=== PATIENT | female | born 1990 | race Caucasian/White ===

== ENCOUNTER → 2017-08-03 15:55 | Outpatient (CLI) | payer OTHER, SELFPAY | PROVIDERS: Family Provider Family Medicine; PCP Family Medicine; Visit Provider Obstetrics & Gynecology | DX: Z34.90 Encounter for supervision of normal pregnancy, unspecified, unspecified trimester (principal) | CPT/HCPCS: 86850; 86900 ==

== ENCOUNTER → 2017-11-10 19:00 | Outpatient (CLI) | payer OTHER, SELFPAY ==
[2017-11-10 21:55] LABS: Chlamydia Trachomatis by PCR Negative (Negative); Neisserai gonorrhoeae by PCR Negative (Negative); Probe Check PASS; Sample Adequacy Control PASS; Specimen Processing Control PASS
== END ==
PROVIDERS: Visit Provider Obstetrics & Gynecology
DX: Z34.01 Encounter for supervision of normal first pregnancy, first trimester (principal)
CPT/HCPCS: 87086; 87088; 87491; 87591

== ENCOUNTER → 2017-12-10 15:03 | Outpatient (CLI) | payer OTHER, SELFPAY ==
[2017-12-10 16:35] LABS: Absolute Lymphocyte Count 1.82 X10^3/ul (0.83-4.51); Absolute Neutrophil Count 9.6 X10^3/uL (2.0-7.7); Basophil# 0.03 X10^3/uL; Basophil% 0.2 % (0-1); Eosinophil# 0.28 X10^3/uL; Eosinophils% 2.2 % (0-5); Hematocrit 37.8 % (37-47); Hemoglobin 13.4 g/dl (12.0-15.0); Lymphocyte # 1.82 X10^3/ul (4.0); Lymphocyte % 14.3 % (19-41); Mean Corp Hgb Conc 35.4 g/gl (32-36); Mean Corpuscular Hgb 30.9 pg (27.0-32.0); Mean Corpuscular Volume 87.3 fL (81-99); Mean Platelet Vol. 9.8 fl (6.2-12.0); Monocyte# 0.95 X10^3/uL; Monocyte% 7.5 % (0-10); Neutrophil # 9.56 X10^3/uL (2.7-7.7); Neutrophil % 75.4 % (47-70); Platelet Count 292 K/mm3 (150-450); RBC Distribution Width SD 40.2 fl (35.1-43.9); Red Blood Count 4.33 M/mm3 (4.2-5.4); White Blood Count 12.7 K/mm3 (4.4-11.0)
[2017-12-10 16:57] LABS: POSITIVE COUNT NO; POSITIVE DIFFERENTIAL NO; POSITIVE MORPHOLOGY NO
[2017-12-11 02:34] LABS: Rapid Plasmin Reagin (RPR) NONREACTIVE (NONREACTIVE)
[2017-12-11 09:28] LABS: HIV - WCH Non-Reactive (Nonreactive); Rubella IgG 95.9 IU/mL
[2017-12-14 12:28] LABS: HEPATITIS B SURFACE AG Negative (Negative)
== END ==
PROVIDERS: PCP Family Medicine; Visit Provider Obstetrics & Gynecology
DX: Z34.01 Encounter for supervision of normal first pregnancy, first trimester (principal)
CPT/HCPCS: 85025; 86592; 86703; 86762; 86850; 86900; 87340

== ENCOUNTER → 2018-01-20 17:58 | Outpatient (CLI) | payer OTHER, SELFPAY ==
--- NOTE | 2018-01-20 17:58 | DT_ITS ---
This patient was seen during an EMR downtime January 18, 2018 - January 25, 2018. This patient may have a combination of paper and electronic documentation or all paper documentation. All documentation is viewable within the e-chart portion of [facility] for each patient visit.
--- NOTE | 2018-01-20 18:00 | US_ITS ---
STUDY: SECOND AND THIRD TRIMESTER OBSTETRICAL ULTRASOUND REASON FOR EXAM: Female, 27 years old. ANATOMY LMP: TECHNIQUE: Transabdominal PRIOR ULTRASOUND: None. FINDINGS: There is a single intrauterine fetus. The fetus is in a breech presentation. There is demonstrated cardiac activity with a heart rate of 142 bpm. There is a normal amniotic fluid volume. The largest amniotic fluid pocket measures 5.8 cm. The placenta is anterior in location and is not low lying. There are Grade 0 placental changes. The cervix measures 31 mm in length. The adnexal regions are not visualized. BIOMETRY: BPD: 41MM: 18 weeks, 4 days HC: 159MM: 18 weeks, 6 days AC: 137MM: 19 weeks, 1 days FL: 29MM: 19 weeks, 1 days CI: 74 FL/BPD: 71 FL/HC: FL/AC: 21 HC/AC: 1.16 age by current US: 19 weeks, 0 days. JON by current US: ..18. Estimated weight: 270 grams, +/- 39 grams, 47 %. Age by LMP: 19 weeks, 0 days. JON by LMP: ..18. ANATOMY: Gender: Female Cranium: Normal lateral ventricles. Normal choroid plexus. Normal cerebellum. Normal cisterna magna. Normal face, nose and lips. Chest: Normal 4-chamber heart. Abdomen/Pelvis: Normal diaphragm. Normal stomach. Normal abdominal wall. Normal cord insertion. Normal 3 vessel cord. Normal kidneys. Normal bladder. There is a marginal cord insertion. Spine: Normal cervical spine. Normal thoracic spine. Normal lumbar spine. Normal sacrum. Extremities: Normal bilateral upper extremities. Normal bilateral lower extremities. US/OB Anatomy Scan IMPRESSION: There is a single live intrauterine with a heart rate of 142 bpm. age by current US: 19 weeks, 0 days. JON by current US: ..18. Unremarkable anatomic survey. There is a marginal cord insertion. Electronically Signed: Toño Cao MD at 21:39 EDT , Service support ,
== END ==
PROVIDERS: Family Provider Family Medicine; PCP Family Medicine; Visit Provider Obstetrics & Gynecology
DX: Z34.01 Encounter for supervision of normal first pregnancy, first trimester (principal)
CPT/HCPCS: 76805

== ENCOUNTER → 2018-02-02 17:09 | Outpatient (CLI) | payer OTHER, SELFPAY ==
--- NOTE | 2018-02-02 17:12 | RAD_ITS ---
STUDY: X-RAY - RIGHT HAND, ATTENTION SECOND FINGER REASON FOR EXAM: Female, 27 years old. Trauma TECHNIQUE: 3 view(s) of the finger were obtained. COMPARISON: None. FINDINGS: Normal metacarpal head. Normal metacarpophalangeal joint. Normal proximal phalanx. Normal middle phalanx. Normal distal phalanx. Normal proximal interphalangeal joint. Normal distal interphalangeal joint. RAD/Finger(s) Min 2 Views IMPRESSION: Normal x-ray examination of the finger. Electronically Signed: Sundar Hu MD at 17:49 EDT , Service support ,
== END ==
PROVIDERS: Family Provider Family Medicine; PCP Family Medicine; Visit Provider Physician Assistant Surgical
DX: S60.021A Contusion of right index finger without damage to nail, initial encounter (principal)
CPT/HCPCS: 73140

== ENCOUNTER → 2018-03-30 16:37 | Outpatient (CLI) | payer OTHER, SELFPAY ==
[2018-03-30 17:16] LABS: Absolute Lymphocyte Count 1.73 X10^3/ul (0.83-4.51); Absolute Neutrophil Count 12.9 X10^3/uL (2.0-7.7); Basophil# 0.03 X10^3/uL; Basophil% 0.2 % (0-1); Eosinophil# 0.28 X10^3/uL; Eosinophils% 1.7 % (0-5); Hemoglobin 12.4 g/dl (12.0-15.0); Lymphocyte # 1.73 X10^3/ul (4.0); Lymphocyte % 10.6 % (19-41); Mean Corp Hgb Conc 34.4 g/gl (32-36); Mean Corpuscular Hgb 31.3 pg (27.0-32.0); Mean Corpuscular Volume 90.9 fL (81-99); Mean Platelet Vol. 9.5 fl (6.2-12.0); Monocyte% 6.8 % (0-10); Neutrophil # 12.87 X10^3/uL (2.7-7.7); Neutrophil % 79.1 % (47-70); Platelet Count 261 K/mm3 (150-450); RBC Distribution Width SD 42.7 fl (35.1-43.9); Red Blood Count 3.96 M/mm3 (4.2-5.4); White Blood Count 16.3 K/mm3 (4.4-11.0)
[2018-03-30 17:17] LABS: POSITIVE COUNT NO; POSITIVE DIFFERENTIAL NO; POSITIVE MORPHOLOGY NO
[2018-03-30 17:30] LABS: Glucose Challenge Gest 1H 50g 175 mg/dL (70-140)
== END ==
PROVIDERS: Family Provider Family Medicine; PCP Family Medicine; Visit Provider Obstetrics & Gynecology
DX: Z34.90 Encounter for supervision of normal pregnancy, unspecified, unspecified trimester (principal)
CPT/HCPCS: 82950; 85025

== ENCOUNTER → 2018-04-05 06:43 | Outpatient (CLI) | payer OTHER, SELFPAY ==
[2018-04-05 08:57] LABS: Glucose GTT-Gestation. Fasting 83 mg/dL (<105)
[2018-04-05 09:08] LABS: Glucose GTT-Gestational 1 Hr 180 mg/dL (<190)
[2018-04-05 10:30] LABS: Glucose GTT-Gestational 2 Hr 135 mg/dL (<165)
[2018-04-05 11:16] LABS: Glucose GTT-Gestational 3 Hr 124 L (<145)
== END ==
PROVIDERS: Nurse Practitioner Women's Health; Visit Provider Obstetrics & Gynecology
DX: O99.810 Abnormal glucose complicating pregnancy (principal); Z3A.00 Weeks of gestation of pregnancy not specified
CPT/HCPCS: 36415; 82951; 82952

== ENCOUNTER → 2018-04-14 15:48 | Outpatient (CLI) | payer OTHER, SELFPAY ==
[2018-04-14 16:07] LABS: Protein, Urine (Random) 43.7 mg/dL (<11.9); Protein:Creat Ratio 654 mg/g CRE (0-200)
== END ==
PROVIDERS: Visit Provider Nurse Practitioner Women's Health
DX: O12.13 Gestational proteinuria, third trimester (principal)
CPT/HCPCS: 82570; 84156

== ENCOUNTER → 2018-04-15 09:08 | Outpatient (CLI) | payer OTHER, SELFPAY ==
[2018-04-15 09:18] LABS: Mucous, Urine 0 SEEN /hpf (<or=2+); White Blood Cells 0 SEEN /hpf (0-5)
[2018-04-15 09:20] LABS: Color, Urine Yellow (Yellow); Glucose, Dipstick 50 mg/dl (Normal); Ketone-Dipstick Negative (Negative); Leukocyte Esterase-Dipstick Negative /ul (Negative); Nitrite-Dipstick Negative (Negative); Occult Blood-Urine 25 /ul (Negative); Protein-Dipstick 15 mg/dl (Negative); Specific Gravity, Urine 1.005 (1.002-1.030); Urine Bilirubin Dipstick Negative (Negative); Urine Clarity Clear (Clear); Urine Urobilinogen Normal (Normal)
[2018-04-15 09:28] LABS: Bacteria RARE /hpf (None Seen); Red Blood Cells-Urine 0-5 SEEN /hpf (0-5); Squamous Epithelial Cells - UA 0-5 SEEN /hpf (5-10)
== END ==
PROVIDERS: Visit Provider Obstetrics & Gynecology
DX: R80.9 Proteinuria, unspecified (principal)
CPT/HCPCS: 81001; 87086

== ENCOUNTER → 2018-04-28 12:25 | Outpatient (CLI) | payer OTHER, SELFPAY ==
--- NOTE | 2018-04-28 12:26 | US_ITS ---
STUDY: SECOND AND THIRD TRIMESTER OBSTETRICAL ULTRASOUND - LIMITED REASON FOR EXAM: Female, 27 years old. Routine survey. History of marginal cord insertion. LMP: September 09, 2017. PRIOR ULTRASOUND: Comparison is made with prior examination dated January 20, 2018. TECHNIQUE: Transabdominal ultrasound evaluation was performed. FINDINGS: There is a single intrauterine fetus. The fetus is in a cephalic presentation. There is demonstrated cardiac activity with a heart rate of 134 bpm. There is a normal amniotic fluid volume. The largest amniotic fluid pocket measures 5.3 cm x 5.2 cm. The amniotic fluid index (NOREEN) is 15.55 cm. The placenta is anterior in location and is not low lying. There are Grade 1 placental changes. The placental cord insertion is seen at 2.8 cm away from the placental edge. The cervix measures 3.46 cm in length. BIOMETRY: BPD: 8.1 cm: 32 weeks, 4 days HC: 30.03 cm: 33 weeks, 3 days AC: 28.08 cm: 32 weeks, 1 days FL: 6.42 cm: 33 weeks, 2 days Age by LMP: 33 weeks, 0 days. JON by LMP: June 16, 2018. age by prior US: 33 weeks, 0 days. JON by prior US: June 16, 2018. age by current US: 32 weeks, 6 days. JON by current US: June 17, 2018. Estimated weight: 2006 grams, +/- 2093 grams, 29 percentile. Gender: Female US/OB Limited With Biometrics IMPRESSION: Single live uterine gestation with a mean gestational age of 33 weeks. The measurements are obtained today. The normal expected range. The placental cord insertion is at 2.8 cm away from the edge of the placenta. Electronically Signed: Sae Helm MD at 15:48 EDT Tel [phone], Service support ,
== END ==
PROVIDERS: Visit Provider Nurse Practitioner Women's Health
DX: Z34.90 Encounter for supervision of normal pregnancy, unspecified, unspecified trimester (principal)
CPT/HCPCS: 76816

== ENCOUNTER → 2018-05-04 09:32 | Outpatient (CLI) | payer OTHER, SELFPAY ==
[2018-05-04 11:29] LABS: Absolute Lymphocyte Count 1.59 X10^3/ul (0.83-4.51); Basophil# 0.03 X10^3/uL; Basophil% 0.2 % (0-1); Eosinophil# 0.21 X10^3/uL; Eosinophils% 1.6 % (0-5); Hematocrit 36.6 % (37-47); Hemoglobin 12.4 g/dl (12.0-15.0); Lymphocyte # 1.59 X10^3/ul (4.0); Mean Corp Hgb Conc 33.9 g/gl (32-36); Mean Corpuscular Hgb 30.6 pg (27.0-32.0); Mean Corpuscular Volume 90.4 fL (81-99); Mean Platelet Vol. 10.1 fl (6.2-12.0); Monocyte# 1.26 X10^3/uL; Monocyte% 9.5 % (0-10); Neutrophil # 10.01 X10^3/uL (2.7-7.7); Neutrophil % 75.8 % (47-70); Platelet Count 261 K/mm3 (150-450); RBC Distribution Width CV 12.9 % (11.6-14.6); RBC Distribution Width SD 41.8 fl (35.1-43.9); Red Blood Count 4.05 M/mm3 (4.2-5.4); White Blood Count 13.2 K/mm3 (4.4-11.0)
[2018-05-04 11:30] LABS: Protein, Urine (Random) 16.6 mg/dL (<11.9); Protein:Creat Ratio 472 mg/g CRE (0-200)
[2018-05-04 11:31] LABS: Differential Indicated SCAN CRITERIA MET; POSITIVE COUNT NO; POSITIVE DIFFERENTIAL NO; POSITIVE MORPHOLOGY YES
[2018-05-04 11:57] LABS: Protein, Urine (Random) 48.5 mg/dL (<11.9); Protein:Creat Ratio 441 mg/g CRE (0-200)
[2018-05-04 12:22] LABS: ALB/GLOB Ratio 0.6 RATIO (0.9-2.4); AST(SGOT) 15 U/L (15-37); Alanine Aminotransfer ALT/SGPT 17 U/L (13-56); Albumin, Serum 2.6 g/dL (3.2-5.0); Alkaline Phosphatase 155 U/L (45-117); Anion Gap 10 (5-15); BUN 7 mg/dL (7-18); BUN/Creat Ratio 16.1 RATIO (10-20); Calcium,Total 8.7 mg/dL (8.5-10.1); Chloride 104 mmol/L (98-107); Creatinine, Serum 0.44 mg/dL (0.55-1.02); EST Glomerular Filtration Rate 186 mL/min (>60); Est Glom Filt Rate - Afr Amer 226 mL/min (>60); Glucose 105 mg/dL (74-106); LDH 168 U/L (84-246); Potassium 3.8 mmol/L (3.5-5.1); Protein, Total 6.6 g/dL (6.4-8.2); Sodium Level 138 mmol/L (136-145)
== END ==
PROVIDERS: Visit Provider Nurse Practitioner Women's Health
DX: O12.13 Gestational proteinuria, third trimester (principal); Z3A.00 Weeks of gestation of pregnancy not specified
CPT/HCPCS: 36415; 80053; 82570; 83615; 84156; 84550; 85025

== ENCOUNTER → 2018-05-12 12:25 | Outpatient (CLI) | payer OTHER, SELFPAY ==
[2018-05-12 12:53] LABS: Protein, Urine (Random) 44.2 mg/dL (<11.9); Protein:Creat Ratio 642 mg/g CRE (0-200)
== END ==
PROVIDERS: Referring Provider Nurse Practitioner Women's Health; Visit Provider Nurse Practitioner Women's Health
DX: O12.13 Gestational proteinuria, third trimester (principal)
CPT/HCPCS: 82570; 84156

== ENCOUNTER 2018-05-12 12:27 | Outpatient (CLI) | payer OTHER, SELFPAY ==
[2018-05-12 12:43] VITALS: BMI 27.5
[2018-05-12 13:26] LABS: International Normalized Ratio 0.9; Prothrombin Time (Protime)PT. 12.2 SECONDS (11.7-14.9)
[2018-05-12 13:27] LABS: Partial Thromboplast Time 30.1 Seconds (24.1-36.2)
[2018-05-12 13:28] LABS: Hematocrit 35.1 % (37-47); Hemoglobin 12.3 g/dl (12.0-15.0); Mean Corpuscular Hgb 31.4 pg (27.0-32.0); Mean Corpuscular Volume 89.5 fL (81-99); Mean Platelet Vol. 9.8 fl (6.2-12.0); Platelet Count 271 K/mm3 (150-450); RBC Distribution Width CV 12.8 % (11.6-14.6); RBC Distribution Width SD 41.7 fl (35.1-43.9); Red Blood Count 3.92 M/mm3 (4.2-5.4); White Blood Count 13.9 K/mm3 (4.4-11.0)
[2018-05-12 13:30] LABS: Scan Indicated on CBC? Y/N NO
[2018-05-12 13:37] LABS: AST(SGOT) 13 U/L (15-37); Alanine Aminotransfer ALT/SGPT 14 U/L (13-56); Creatinine, Serum 0.48 mg/dL (0.55-1.02); EST Glomerular Filtration Rate 166 mL/min (>60); Est Glom Filt Rate - Afr Amer 201 mL/min (>60); Estimated Creatinine Clearance 128.69 ml/min; Uric Acid 3.5 mg/dL (2.6-6.0)
--- NOTE | 2018-05-12 21:11 | OB.TRI.NOTE ---
- Problem List (1) Non-reactive NST (non-stress test) Status: Acute History of Present Illness Date of Service: 05/12/18 Was patient seen by the physician?: Yes Reason For Visit: MONITORING Date of Service: 05/12/18 Final JON: 06/16/18 Gestational age: 35 Weeks and 0 Days History of Present Illness: presents for prolonged monitoring secondary to non reactive nt. she has proteinuria and has been getting weekly testing to monitor for preeclampsia. Allergies No Known Allergies Allergy (Verified 05/12/18 11:57) NST - FHR Rate Baby A Baseline: 140 Variability:: Moderate Accelerations:: 15 x 15 Decelerations:: None NST Reactive:: Yes FHR Category:: Category I Uterine Activity:: no regular ctx Impression/Plan non reactive nst- now reactive and reassuring, labs WNL nd home
== END 2018-05-12 14:30 | disposition home or self-care (01) ==
LOC: WPOUT 12:29 → WP 12:29
PROVIDERS: Referring Provider Obstetrics & Gynecology; Visit Provider Obstetrics & Gynecology
DX: O12.13 Gestational proteinuria, third trimester (principal); Z3A.35 35 weeks gestation of pregnancy
CPT/HCPCS: 36415; 59025; 59050; 82565; 84450; 84460; 84550; 85027; 85610; 85730; 99218; G0378

== ENCOUNTER 2018-05-21 15:50 | Outpatient (CLI) | payer OTHER, SELFPAY ==
[2018-05-21 15:59] VITALS: BMI 27.8
[2018-05-21 19:30] LABS: Group B Strep DNA By PCR Negative (Negative); Internal Control PASS; Probe Check PASS; Specimen Processing Control PASS
--- NOTE | 2018-05-21 20:39 | OB.TRI.NOTE ---
- Problem List (1) Abnormal glucose tolerance test in Status: Acute Comment: normal 3 hr (2) Marginal insertion of umbilical cord Status: Acute Comment: growth us nl 04/28 (3) Status: Acute Qualifiers: Comment: History : 4 Elective abortions: 2 Hx Para: 0 Spontaneous abortions: 1 Hx # Term Pregnancies: Ectopic pregnancies: Hx # Pregnancies: Multiple births: : # of living children: Past Pregnancies elective elective 2 spontaneous (4) Proteinuria affecting in third trimester Status: Acute Comment: recommend home bp monitoring and growth scan every 4 weeks. weekly nst (5) Supervision of normal Status: Acute Qualifiers: Comment: PRR JON 06/16/18 girl Rachael Catrachito History of Present Illness Date of Service: 05/21/18 Was patient seen by the physician?: Yes Reason For Visit: NST History of Present Illness: nst Allergies No Known Allergies Allergy (Verified 05/21/18 15:59) NST - FHR Rate Baby A Baseline: 120-130 moderate variability reactive no decels Variability:: Moderate Accelerations:: 15 x 15 Decelerations:: None NST Reactive:: Yes FHR Category:: Category I Uterine Activity:: no regular Impression/Plan reactive nst dc home
== END 2018-05-21 17:00 | disposition home or self-care (01) ==
LOC: WPOUT 15:56 → WP 15:57
PROVIDERS: Referring Provider Obstetrics & Gynecology; Visit Provider Obstetrics & Gynecology
DX: O99.810 Abnormal glucose complicating pregnancy (principal); O26.23 Pregnancy care for patient with recurrent pregnancy loss, third trimester; O12.13 Gestational proteinuria, third trimester; Z3A.00 Weeks of gestation of pregnancy not specified
CPT/HCPCS: 59025; 59050; 87081; 87653; 99218; G0378

== ENCOUNTER → 2018-05-25 07:57 | Outpatient (CLI) | payer OTHER, SELFPAY ==
--- NOTE | 2018-05-25 07:59 | US_ITS ---
STUDY: SECOND AND THIRD TRIMESTER OBSTETRICAL ULTRASOUND - LIMITED REASON FOR EXAM: Female, 27 years old. Growth assessment. History of marginal cord insertion. LMP: 09/09/2017. GA (LMP) 36 week 6 day with JON 06/16/2018. PRIOR ULTRASOUND: None. TECHNIQUE: Transabdominal ultrasound evaluation was performed. FINDINGS: There is a single live intrauterine gestation, cephalic presentation, cardiac rate 149 bpm. Normal amniotic fluid index 12.4 cm. Deepest vertical pocket 4.2 cm. Closed cervix, 3.4 cm. Placenta grade 2, anterior, not low-lying. Again seen is insertion of the cord at the margin of the placenta. BIOMETRY: Measurement and centimeter. BPD: 8.76: 35 weeks, 3 days HC: 31.89: 36 weeks, 0 days AC: 31.97: 36 weeks, 0 days FL: 6.9 to: 35 weeks, 4 days Cephalic index 81% Femur length/abdominal circumference 22% Femur length/biparietal diameter 79% Head circumference/abdominal circumference 1.0 Age by LMP: 36 weeks, 6 days. JON by LMP: 06/16/2018. age by prior US: 36 weeks, 5 days. JON by prior US: 06/17/2018. age by current US: 35 weeks, 6 days. JON by current US: 06/23/2018. Estimated weight: 2755 grams, +/- 402 grams, 26 percentile. The limited evaluation of the fetus for assessment of dates, viability and position only. No gross anatomic abnormality was observed. US/OB Limited With Biometrics IMPRESSION: No acute or maternal abnormality. Marginal cord insertion on the placenta as seen on prior imaging. Measurements on today's study fall within 6 days of measurements on prior ultrasound, and within one week of dates based on last menses. Electronically Signed: Manuel Dominguez, at 18:07 EDT Tel , Service support ,
== END ==
PROVIDERS: Visit Provider Nurse Practitioner Women's Health
DX: O12.13 Gestational proteinuria, third trimester (principal); Z3A.00 Weeks of gestation of pregnancy not specified
CPT/HCPCS: 76816

== ENCOUNTER 2018-06-05 15:05 | Emergency (ER) | payer OTHER, SELFPAY ==
[2018-06-05 15:06] VITALS: BP 112/72; PULSE 118; RESP 16; TEMP 36.5; O2SAT 99; BMI 28.3
--- NOTE | 2018-06-05 15:13 | RAD_ITS ---
STUDY: X-RAY - LEFT ANKLE REASON FOR EXAM: Female, 27 years old. Lateral ankle pain and swelling. TECHNIQUE: 3 view(s) of the ankle. COMPARISON: None. FINDINGS: Normal visualized distal tibia and fibula. Normal medial and lateral malleoli. Normal tibiotalar articulation and ankle mortise. Normal visualized talus and calcaneus. The visualized subtalar, talonavicular, calcaneocuboid and tarsal articulations are normal. There is marked soft tissue swelling over the lateral malleolus. RAD/Ankle min 3 Views IMPRESSION: Lateral malleolar soft tissue swelling. No acute osseous abnormality. Electronically Signed: Anish Patino MD at 15:57 EDT , Service support ,
[2018-06-05] MEDS: Acetaminophen 500 MG Tablet 1000 MG PO (15:16)
--- NOTE | 2018-06-05 15:16 | ED.DCSUM_ITS ---
- ER Visit Summary Date of Service: 06/05/18 Chief Complaint: Left ankle pain History of Present Illness: The patient is a 27 F who presents with left ankle pain. She states she fell off of her porch. She did not know that there is a hole there and her foot went into the school. She is not sure if she twisted it or rolled the ankle. She has pain diffusely in the ankle. Worse with walking and with movement. She is currently 38 weeks gestation. She took nothing for this at home. Denies any abdominal symptoms. Physical Examination: Vital signs are reviewed. Left ankle exam reveals tenderness mildly over the lateral part of the ankle. She has painful range of motion. She has 2+ DP pulses. There is no fifth metatarsal or fibular head tenderness to palpation. Test Results: Ankle x-rays per my interpretation reveals no fracture Emergency Department Course and Treatment: Patient was given Tylenol and ice. She will be given an Aircast. She will keep it elevated at home. We discussed the possibility of using crutches. But due to the fact that she is 38 weeks gestation she did not want to risk falling. She will rest as much as possible. Follow-up with her PCP Treatment Plan: [] Disposition: Discharge Impression: Left ankle sprain This note was generated with [employer] dictation software. It may contain incorrect words, spelling, and punctuation that were not noted in review of the chart prior to signing ED Disposition - Plan for ED Patient: Chief Complaint: Lower Extremity Injury Referrals: Care Physician,No Primary [Primary Care Provider] -
--- NOTE | 2018-06-05 15:40 | ED.DEP ---
ED Disposition - Plan for ED Patient: Disposition: Home or Assisted Living Chief Complaint: Lower Extremity Injury Instructions: ED Sprain Ankle W X Ray Referrals: Care Physician,No Primary [Primary Care Provider] -
--- NOTE | 2018-06-05 15:48 | ED.RN ---
DISCHARGE INSTRUCTIONS GIVEN TO AND REVIEWED WITH PATIENT, PATIENT DENIES QUESTIONS OR CONCERNS AND VOICES UNDERSTANDING OF DISCHARGE INSTRUCTIONS. PT AMBULATES OUT OF ROOM WITHOUT ISSUE.
== END 2018-06-05 15:48 | disposition home or self-care (01) ==
PROVIDERS: Emergency Provider Emergency Medicine
DX: S93.402A Sprain of unspecified ligament of left ankle, initial encounter (principal); O26.893 Other specified pregnancy related conditions, third trimester; W17.89XA Other fall from one level to another, initial encounter; Y93.9 Activity, unspecified; Y92.099 Unspecified place in other non-institutional residence as the place of occurrence of the external cause; Y99.9 Unspecified external cause status; Z3A.38 38 weeks gestation of pregnancy
CPT/HCPCS: 73610; 99283

== ENCOUNTER 2018-06-16 11:34 | Inpatient (IN) | payer OTHER, SELFPAY ==
[2018-06-16 12:04] VITALS: BMI 28.7
[2018-06-16] MEDS: Lactated Ringers 1,000 ML 50 ML IV ×2 (12:10→16:45)
[2018-06-16 12:21] LABS: Hematocrit 35.9 % (37-47); Hemoglobin 12.4 g/dl (12.0-15.0); Mean Corp Hgb Conc 34.5 g/gl (32-36); Mean Corpuscular Hgb 30.4 pg (27.0-32.0); Mean Platelet Vol. 10.1 fl (6.2-12.0); Platelet Count 304 K/mm3 (150-450); RBC Distribution Width CV 13.4 % (11.6-14.6); Red Blood Count 4.08 M/mm3 (4.2-5.4); White Blood Count 12.4 K/mm3 (4.4-11.0)
[2018-06-16 12:22] LABS: Scan Indicated on CBC? Y/N NO
[2018-06-16] MEDS: Oxytocin 30 units/NS 500 ml 30 UNITS/500 ML IV.SOLN IV (12:32)
--- NOTE | 2018-06-16 19:43 | PCM.HP.OB ---
- Problem List (1) heart deceleration Status: Acute (2) Proteinuria affecting in third trimester Status: Acute Comment: recommend home bp monitoring and growth scan every 4 weeks. weekly nst (3) Abnormal glucose tolerance test in Status: Acute Comment: normal 3 hr (4) Status: Acute Qualifiers: Comment: History : 4 Elective abortions: 2 Hx Para: 0 Spontaneous abortions: 1 Hx # Term Pregnancies: Ectopic pregnancies: Hx # Pregnancies: Multiple births: : # of living children: Past Pregnancies elective elective 2 spontaneous (5) Marginal insertion of umbilical cord Status: Acute Comment: growth us nl 04/28 (6) Supervision of normal Status: Acute Qualifiers: Comment: PRR JON 06/16/18 girl Rachael Catrachito History Date of Admission: 06/16/18 Final JON: 06/16/18 Gestational age: 40 Weeks and 0 Days History of this : This is a 27 year-old, , at 40 weeks gestational age prsents for IOL secondary to late decel in the office. she has had a complicated by proteinuria and a marginal insertion of the umbilical cord. she denies any vb lof admits good fm and has some mild ctx. Allergies No Known Allergies Allergy (Verified 06/16/18 12:19) Home Medications: Home Medications vitamin,calcium,ecbyumbz-hwvs-xzizt acid tablet 1 tab PO QDAY 02/09/18 Smoking Status: Current every day smoker Alcohol: None Number of Fetus(es): 1 Heart Tracin moderate variability reactive no decels TOCO Analysis: q3-5 History Past Pregnancies: Past Pregnancies Delivery Date Name GA/Weeks Outcome Route Weight Gender Labor Length Anesthesia Delivery Location Provider FOB Labs: Mom's Labs & Results 06/16/18 06/16/18 12:10 12:10 WBC 12.4 H RBC 4.08 L Hgb 12.4 Hct 35.9 L MCV 88.0 MCH 30.4 MCHC 34.5 RDW 13.4 RDW Differential 42.0 Plt Count 304 MPV 10.1 Blood Type O POSITIVE Antibody Screen NEGATIVE Course Did the patient receive Yes care? Labs Blood Type: O RH: POSITIVE RPR/VDRL/Syphilis Nonreactive Rubella status Immune HbSAg Negative Date Done: 12/10/17 Chlamydia Negative Gonorrhea Negative HIV/AIDS Non-Reactive Group B Strep: Negative Current Obstetrical History Gestational Diabetes No Incompetent Cervix No Infertility No IUGR No Macrosomia No Hypertension/Pre-eclampsia No: had protien in urine but blood pressures were always fine Placenta Previa/Abruption No PTL/PROM No Uterine anomaly No Oligohydramnios No Polyhydramnios No Multiple gestation No Past Medical History Asthma No Diabetes No Hypertension No Heart disease No Mitral valve prolapse No Neurologic/Seizure disorder/ No Migraines Kidney disease No Liver disease No Varicosities No Clotting disorders/Hx of DVT No Thyroid Dysfunction No Other medical diseases No Psychiatric disorders No Major trauma No Abnormal PAP smear No Sleep apnea No Mammogram in the last 2 years No Social History Marital Status: Alleged father Catrachito Hx Smoking Yes Smoking Status Current every day smoker Expected Delivery Method: Spontaneous Vaginal Review of Systems Constitutional: Denies: Fever, Malaise Eyes: Denies: Blurred vision, Vision Change HEENT: Denies: Head Aches, Visual Changes Cardiovascular: Denies: Chest Pain, Palpitations Respiratory: Denies: Cough, Shortness of Breath, Wheezing Gastrointestinal: Denies: Abdominal Pain, Diarrhea, Nausea, Vomiting Genitourinary: Denies: Dysuria, Hematuria Musculoskeletal: Denies: Joint Pain, Muscle pain Skin: Denies: Lesions, Rash Neurological: Denies: Blurred vision, Focal weakness, Headaches Psychiatric: Denies: Anxiety, Depression Endocrine: Denies: Heat/ Cold Intolerance Hematologic/ Lymphatic: Denies: Easy Bruising, Easy Bleeding Physical Exam General: Alert, Cooperative, No apparent distress HEENT: Atraumatic, Normocephalic. Negative for: Thyromegaly, Lymphadenopathy Cardiovascular: Regular rate Lungs: Normal air movement Abdomen: Soft, Non Tender, Gravid Neurological: Deep Tendon Reflexes 2+/4 and Symmetrical, Neuro grossly intact. Negative for: Clonus [employer]LE[employer] SERVICE: Normal external genitalia. Negative for: Vulvar lesions Estimated gestational size: Appropriate for gestational size Presentation: Cephalic Cervix Dilation (cm): 3.5 Station: -1 Effacement (%): 70 Assessment/Plan All Active Problems (Last Reviewed 06/16/18 @ 11:12 by Socorro Cabrera) heart deceleration (Acute) Proteinuria affecting in third trimester (Acute) Abnormal glucose tolerance test in (Acute) (Acute) Marginal insertion of umbilical cord (Acute) Supervision of normal (Acute) Contusion of right index finger without damage to nail, initial encounter (Resolved) Non-reactive NST (non-stress test) (Resolved) This is a 27 year-old, at 40 weeks gestational age presents for IOL secodnary to decel Patient presents Pit IOL, plan expectant management for , arom clear Pain management: minimal intervention. GBS neg Management of any complications: marginal cord insertion, proteinuria I have reviewed the [facility] and made any clinically relevant updates.
--- NOTE | 2018-06-16 19:46 | HP.PCM_ITS ---
- Problem List (1) heart deceleration Status: Acute (2) Proteinuria affecting in third trimester Status: Acute Comment: recommend home bp monitoring and growth scan every 4 weeks. weekly nst (3) Abnormal glucose tolerance test in Status: Acute Comment: normal 3 hr (4) Status: Acute Qualifiers: Comment: History : 4 Elective abortions: 2 Hx Para: 0 Spontaneous abortions: 1 Hx # Term Pregnancies: Ectopic pregnancies: Hx # Pregnancies: Multiple births: : # of living children: Past Pregnancies elective elective 2 spontaneous (5) Marginal insertion of umbilical cord Status: Acute Comment: growth us nl 04/28 (6) Supervision of normal Status: Acute Qualifiers: Comment: PRR JON 06/16/18 girl Rachael Catrachito History Date of Admission: 06/16/18 Final JON: 06/16/18 Gestational age: 40 Weeks and 0 Days History of this : This is a 27 year-old, , at 40 weeks gestational age prsents for IOL secondary to late decel in the office. she has had a complicated by proteinuria and a marginal insertion of the umbilical cord. she denies any vb lof admits good fm and has some mild ctx. Allergies No Known Allergies Allergy (Verified 06/16/18 12:19) Home Medications: Home Medications vitamin,calcium,apxombsd-oidn-nmdng acid tablet 1 tab PO QDAY 02/09/18 Smoking Status: Current every day smoker Alcohol: None Number of Fetus(es): 1 Heart Tracin moderate variability reactive no decels TOCO Analysis: q3-5 History Past Pregnancies: Past Pregnancies Delivery Date Name GA/Weeks Outcome Route Weight Gender Labor Length Anesthesia Delivery Location Provider FOB Labs: Mom's Labs & Results 06/16/18 06/16/18 12:10 12:10 WBC 12.4 H RBC 4.08 L Hgb 12.4 Hct 35.9 L MCV 88.0 MCH 30.4 MCHC 34.5 RDW 13.4 RDW Differential 42.0 Plt Count 304 MPV 10.1 Blood Type O POSITIVE Antibody Screen NEGATIVE Course Did the patient receive Yes care? Labs Blood Type: O RH: POSITIVE RPR/VDRL/Syphilis Nonreactive Rubella status Immune HbSAg Negative Date Done: 12/10/17 Chlamydia Negative Gonorrhea Negative HIV/AIDS Non-Reactive Group B Strep: Negative Current Obstetrical History Gestational Diabetes No Incompetent Cervix No Infertility No IUGR No Macrosomia No Hypertension/Pre-eclampsia No: had protien in urine but blood pressures were always fine Placenta Previa/Abruption No PTL/PROM No Uterine anomaly No Oligohydramnios No Polyhydramnios No Multiple gestation No Past Medical History Asthma No Diabetes No Hypertension No Heart disease No Mitral valve prolapse No Neurologic/Seizure disorder/ No Migraines Kidney disease No Liver disease No Varicosities No Clotting disorders/Hx of DVT No Thyroid Dysfunction No Other medical diseases No Psychiatric disorders No Major trauma No Abnormal PAP smear No Sleep apnea No Mammogram in the last 2 years No Social History Marital Status: Alleged father Catrachito Hx Smoking Yes Smoking Status Current every day smoker Expected Delivery Method: Spontaneous Vaginal Review of Systems Constitutional: Denies: Fever, Malaise Eyes: Denies: Blurred vision, Vision Change HEENT: Denies: Head Aches, Visual Changes Cardiovascular: Denies: Chest Pain, Palpitations Respiratory: Denies: Cough, Shortness of Breath, Wheezing Gastrointestinal: Denies: Abdominal Pain, Diarrhea, Nausea, Vomiting Genitourinary: Denies: Dysuria, Hematuria Musculoskeletal: Denies: Joint Pain, Muscle pain Skin: Denies: Lesions, Rash Neurological: Denies: Blurred vision, Focal weakness, Headaches Psychiatric: Denies: Anxiety, Depression Endocrine: Denies: Heat/ Cold Intolerance Hematologic/ Lymphatic: Denies: Easy Bruising, Easy Bleeding Physical Exam General: Alert, Cooperative, No apparent distress HEENT: Atraumatic, Normocephalic. Negative for: Thyromegaly, Lymphadenopathy Cardiovascular: Regular rate Lungs: Normal air movement Abdomen: Soft, Non Tender, Gravid Neurological: Deep Tendon Reflexes 2+/4 and Symmetrical, Neuro grossly intact. Negative for: Clonus [employer]: Normal external genitalia. Negative for: Vulvar lesions Estimated gestational size: Appropriate for gestational size Presentation: Cephalic Cervix Dilation (cm): 3.5 Station: -1 Effacement (%): 70 Assessment/Plan All Active Problems (Last Reviewed 06/16/18 @ 11:12 by Socorro Cabrera) heart deceleration (Acute) Proteinuria affecting in third trimester (Acute) Abnormal glucose tolerance test in (Acute) (Acute) Marginal insertion of umbilical cord (Acute) Supervision of normal (Acute) Contusion of right index finger without damage to nail, initial encounter (Resolved) Non-reactive NST (non-stress test) (Resolved) This is a 27 year-old, at 40 weeks gestational age presents for IOL secodnary to decel Patient presents Pit IOL, plan expectant management for , arom clear Pain management: minimal intervention. GBS neg Management of any complications: marginal cord insertion, proteinuria I have reviewed the [facility] and made any clinically relevant updates.
--- NOTE | 2018-06-16 19:46 | PCM.OB.VAG ---
- Problem List (1) heart deceleration Status: Acute (2) Proteinuria affecting in third trimester Status: Acute Comment: recommend home bp monitoring and growth scan every 4 weeks. weekly nst (3) Abnormal glucose tolerance test in Status: Acute Comment: normal 3 hr (4) Status: Acute Qualifiers: Comment: History : 4 Elective abortions: 2 Hx Para: 0 Spontaneous abortions: 1 Hx # Term Pregnancies: Ectopic pregnancies: Hx # Pregnancies: Multiple births: : # of living children: Past Pregnancies elective elective 2 spontaneous (5) Marginal insertion of umbilical cord Status: Acute Comment: growth us nl 04/28 (6) Supervision of normal Status: Acute Qualifiers: Comment: PRR JON 06/16/18 girl Rachael Catrachito Vaginal Delivery Maternal Presentation: Medically Indicated Induction iol decel 40 weeks Medical Reason for Induction: Maternal Medical Condition: list: Amniotic Membrane Rupture Type: Artificial Amniotic Fluid Description: Clear Final JON: 06/16/18 Gestational age: 40 Weeks and 1 Days Date of Procedure: 06/16/18 Pre-Operative Diagnosis: iol decel Post-Operative Diagnosis: same Surgery/ Procedure Performed: Spontaneous Vaginal Delivery Type of Anesthesia: None Description of Procedure: Patient began pushing and delivered the head in the JESSIE presentation. The head was delivered atraumatically. The anterior and posterior shoulders delivered without complication followed by the rest of the and the was placed on the maternal abdomen. Delayed cord clamping was employed for approximately 60 seconds. Cord was clamped and cut and gentle traction was applied to the cord and the placenta delivered spontaneously immediately following it was noted to be intact with three-vessel cord. The perineum and vagina were inspected and noted to have no laceration. EBL was 300 cc. Patient and infant tolerated delivery well. Placental Delivery Description: Spontaneous Placenta Disposition: [facility] Cord Vessel Description: 3 Vessels
[2018-06-16] MEDS: Naproxen 250 MG Tablet PO (21:45)
[2018-06-17 02:00] VITALS: BP 104/68; PULSE 104; RESP 18; TEMP 37.3; O2SAT 98
[2018-06-17 04:50] VITALS: BP 113/77; PULSE 97; RESP 18; TEMP 36.7; O2SAT 99
--- NOTE | 2018-06-17 08:15 | PCM.PN.OB ---
Patient Problems: Active and Suspected Problems (Last Reviewed 06/16/18 @ 11:12 by Socorro Cabrera) heart deceleration (Acute) Subjective: No CP, SOB. Doing well. - Physical Exam General: Alert, Oriented x3 Abdomen: Soft, Non Tender, - - FF firm 1 above U-needed to void. Bleeding minimal. Vital Signs Temp Pulse Resp BP Pulse Ox 98.1 F 97 18 113/77 99 06/17/18 04:50 06/17/18 04:50 06/17/18 04:50 06/17/18 04:50 06/17/18 04:50 Oxygen Delivery Method Room Air Weight: 147 lb Body Mass Index (BMI) 28.7 Intake and Output for Last 24 Hours 06/15/18 06/16/18 06/17/18 23:59 23:59 23:59 Output Total 750 / 750 Balance -750 / -750 Laboratory Tests Past 24 Hrs 06/16/18 06/16/18 12:10 12:10 WBC 12.4 H RBC 4.08 L Hgb 12.4 Hct 35.9 L MCV 88.0 MCH 30.4 MCHC 34.5 RDW 13.4 RDW Differential 42.0 Plt Count 304 MPV 10.1 Blood Type O POSITIVE Antibody Screen NEGATIVE Medical Necessity - Tobacco Use Smoking Status: Current every day smoker Assessment/Plan All Active Problems (Last Reviewed 06/16/18 @ 11:12 by Socorro Cabrera) heart deceleration (Acute) Proteinuria affecting in third trimester (Acute) Abnormal glucose tolerance test in (Acute) (Acute) Marginal insertion of umbilical cord (Acute) Supervision of normal (Acute) Contusion of right index finger without damage to nail, initial encounter (Resolved) Non-reactive NST (non-stress test) (Resolved) PPD#1: Routine care. Pain controlled.
[2018-06-17] MEDS: Naproxen 250 MG Tablet PO (09:21)
[2018-06-17] MEDS: Prenatal Vits Tablet 1 TABLET PO (09:21)
[2018-06-17 09:37] VITALS: BP 113/73; PULSE 91; RESP 18; TEMP 36.6; O2SAT 95
[2018-06-17 12:30] VITALS: BP 124/75; PULSE 103; RESP 16; TEMP 36.4
[2018-06-17 16:00] VITALS: BP 106/71; PULSE 98; RESP 18; TEMP 36.7; O2SAT 96
--- NOTE | 2018-06-17 17:47 | PCM.DCVAG ---
Discharge Diet: No Restrictions Discharge Activity: Return to Normal Activity, May not drive while taking narcotic pain medications., May Shower May resume sexual activity in: 4-6 weeks Call your doctor if your incision/area has: Continuous Slow Oozing, Sudden Increased Bleeding, Increased Pain/ Swelling, Increased Redness, Foul Smelling Discharge Additional Instructions: If you experience any of the following, contact your healthcare provider. Bleeding that soaks a pad every hour for 2 hours Fever 100.4 or higher Unrelieved incision or abdominal pain Swelling, redness, discharge or bleeding from your incision or episiotomy site Your incision begins to separate Problems urinating (including inability to urinate or burning while urinating). Visual changes Severe headache Flu-like symptoms Pain or redness in one of both of your breasts Pain, warmth, tenderness or swelling in your legs, especially the calf area Frequent nausea and vomiting Symptoms of depression or anxiety If you experience any of the following, call 911 or go to the nearest Emergency Room. Chest pain Problems breathing Seizure activity Partial or complete paralysis of a body part, slurred speech, weakness or drooping of the face, or a sudden inability to walk or hold your balance Allergies/Adverse Reactions: Allergies No Known Allergies Allergy (Verified 06/16/18 12:19) Medications to take at Discharge vitamin,calcium,sihsioyl-zpdo-ubxuf acid tablet 1 tab PO QDAY 02/09/18 Please Follow Up With: Adeola Merchant MD - [phone] When: Call to make an appointment with your doctor in 6 weeks. If you had elevated Blood pressure or 4th degree laceration you will need to be seen in 2 weeks. Primary Care Physician: Care Physician,No Primary [Primary Care Provider] - Test Results: Test results from this visit will be discussed in further detail at your follow-up appointment, if applicable.
--- NOTE | 2018-06-17 17:48 | DCINST_ITS ---
Discharge Diet: No Restrictions Discharge Activity: Return to Normal Activity, May not drive while taking narcotic pain medications., May Shower May resume sexual activity in: 4-6 weeks Call your doctor if your incision/area has: Continuous Slow Oozing, Sudden Increased Bleeding, Increased Pain/ Swelling, Increased Redness, Foul Smelling Discharge Additional Instructions: If you experience any of the following, contact your healthcare provider. * Bleeding that soaks a pad every hour for 2 hours * Fever 100.4 or higher * Unrelieved incision or abdominal pain * Swelling, redness, discharge or bleeding from your incision or episiotomy site * Your incision begins to separate * Problems urinating (including inability to urinate or burning while urinating). * Visual changes * Severe headache * Flu-like symptoms * Pain or redness in one of both of your breasts * Pain, warmth, tenderness or swelling in your legs, especially the calf area * Frequent nausea and vomiting * Symptoms of depression or anxiety If you experience any of the following, call 911 or go to the nearest Emergency Room. * Chest pain * Problems breathing * Seizure activity * Partial or complete paralysis of a body part, slurred speech, weakness or drooping of the face, or a sudden inability to walk or hold your balance Allergies/Adverse Reactions: Allergies No Known Allergies Allergy (Verified 06/16/18 12:19) Medications to take at Discharge vitamin,calcium,skvcsvee-mkkh-iaicn acid tablet 1 tab PO QDAY 02/09/18 Please Follow Up With: Adeola Merchant MD - [phone] When: Call to make an appointment with your doctor in 6 weeks. If you had elevated Blood pressure or 4th degree laceration you will need to be seen in 2 weeks. Primary Care Physician: Care Physician,No Primary [Primary Care Provider] - Test Results: Test results from this visit will be discussed in further detail at your follow- up appointment, if applicable.
[2018-06-17 20:39] VITALS: BP 114/67; PULSE 92; RESP 18; TEMP 36.6; O2SAT 96
== END 2018-06-17 21:34 | disposition home or self-care (01) | DRG 807 ==
PROVIDERS: Admitting Provider Obstetrics & Gynecology; Referring Provider Obstetrics & Gynecology; Visit Provider Obstetrics & Gynecology
DX: O76 Abnormality in fetal heart rate and rhythm complicating labor and delivery (principal); Z37.0 Single live birth; O99.334 Smoking (tobacco) complicating childbirth; Z3A.40 40 weeks gestation of pregnancy
CPT/HCPCS: 59025; 59050; 85027; 86850; 86900; 99218; J7120; G0378

== ENCOUNTER → 2019-03-07 16:14 | Outpatient (CLI) | payer OTHER, SELFPAY ==
[2018-07-29 11:09] VITALS: BMI 23.6
[2019-03-07 18:02] LABS: hCG Titer Quant., Serum 3420 mIU/mL (1-3)
== END ==
PROVIDERS: Referring Provider Obstetrics & Gynecology; Visit Provider Obstetrics & Gynecology
DX: N91.2 Amenorrhea, unspecified (principal)
CPT/HCPCS: 36415; 84702

== ENCOUNTER → 2019-03-22 08:38 | Outpatient (CLI) | payer OTHER, SELFPAY ==
[2018-07-29 11:09] VITALS: BMI 23.6
--- NOTE | 2019-03-22 08:40 | US_ITS ---
STUDY: FIRST TRIMESTER OBSTETRICAL ULTRASOUND REASON FOR EXAM: Female, 28 years old. dates. LMP: Unknown. TECHNIQUE: Transvaginal TECHNICAL QUALITY: Adequate. PRIOR ULTRASOUND: None. FINDINGS: There is visualization of a single gestational sac in a normal intrauterine position. The mean sac diameter (MSD) measures 1.8 cm, indicating an estimated gestational age (EGA) of 6 weeks, 6 days. The gestational sac shape is within normal limits. 1.7 cm probable subchorionic hemorrhage. There is a visualized yolk sac. The yolk sac measures 4 mm. The placenta is non-visualized. There is visualization of a live embryo. The crown-rump length (CRL) measures 1.1, indicating an estimated gestational age (EGA) of 7 weeks, 2 days. There is demonstrated cardiac activity with a heart rate of 130 bpm. The estimated gestation age (EGA) by US is 7 weeks, 1 days. The estimated date of delivery (JON) by US is 11/07/2019. The uterus measures 9.2 x 4.4 x 6.1 cm. There is no demonstrated uterine fibroid. The cervix is closed. The right ovary measures 2.8 x 3.5 x 2.1 cm. There is a 2 cm cyst. There is no visualized right adnexal mass or complex lesion. The left ovary is not adequately seen. There is no fluid in the cul de sac. US/Transvaginal w/Preg US IMPRESSION: Single live intrauterine gestation with ultrasound EGA of approximately 7 weeks 2 days. 1.7 cm subchorionic hemorrhage. Electronically Signed: Neal Mcclain MD at 16:58 EDT , Service support ,
== END ==
PROVIDERS: Referring Provider Obstetrics & Gynecology; Visit Provider Obstetrics & Gynecology
DX: Z78.9 Other specified health status (principal)
CPT/HCPCS: 76817

== ENCOUNTER → 2019-04-11 17:46 | Outpatient (CLI) | payer OTHER, SELFPAY ==
[2019-04-11 12:36] VITALS: BMI 23.6
[2019-04-11 18:08] LABS: Protein, Urine (Random) < 6.0 mg/dL (<11.9)
[2019-04-11 23:21] LABS: Chlamydia Trachomatis by PCR Negative (Negative); Neisserai gonorrhoeae by PCR Negative (Negative); Probe Check PASS; Sample Adequacy Control PASS; Specimen Processing Control PASS
[2019-04-19 08:20] LABS: HPV Reflexed? NOT INDICATED
== END ==
PROVIDERS: Referring Provider Obstetrics & Gynecology; Visit Provider Obstetrics & Gynecology
DX: Z34.80 Encounter for supervision of other normal pregnancy, unspecified trimester (principal); Z12.4 Encounter for screening for malignant neoplasm of cervix
CPT/HCPCS: 82570; 84156; 87086; 87088; 87491; 87591; 87624; 88175; G0145

== ENCOUNTER → 2019-05-13 11:14 | Outpatient (CLI) | payer OTHER, SELFPAY ==
[2019-05-13 10:54] VITALS: BMI 23.6
[2019-05-13 11:47] LABS: Absolute Lymphocyte Count 1.87 X10^3/uL (0.83-4.51); Absolute Neutrophil Count 8.2 X10^3/uL (2.0-7.7); Basophil# 0.06 X10^3/uL; Basophil% 0.5 % (0-1); Eosinophil# 0.28 X10^3/uL; Eosinophils% 2.5 % (0-5); Hematocrit 39.2 % (37-47); Hemoglobin 13.6 g/dL (12.0-15.0); Lymphocyte # 1.87 X10^3/ul (4.0); Lymphocyte % 16.7 % (19-41); Mean Corp Hgb Conc 34.7 g/dL (32-36); Mean Corpuscular Hgb 30.4 pg (27.0-32.0); Mean Corpuscular Volume 87.7 fL (81-99); Mean Platelet Vol. 9.7 fl (6.2-12.0); Monocyte# 0.79 X10^3/uL; NRBC Flagged by Analyzer 0 % (0-5); Neutrophil # 8.16 X10^3/uL (2.7-7.7); Neutrophil % 72.9 % (47-70); Platelet Count 299 K/mm3 (150-450); RBC Distribution Width CV 13.1 % (11.6-14.6); RBC Distribution Width SD 41.6 fl (35.1-43.9); Red Blood Count 4.47 M/mm3 (4.2-5.4); White Blood Count 11.2 K/mm3 (4.4-11.0)
[2019-05-13 13:05] LABS: HIV - WCH Non-Reactive (Nonreactive); Rubella IgG 79.9 IU/mL
[2019-05-20 02:40] LABS: Rapid Plasmin Reagin (RPR) NONREACTIVE (NONREACTIVE)
== END ==
PROVIDERS: Referring Provider Obstetrics & Gynecology; Visit Provider Obstetrics & Gynecology
DX: Z34.80 Encounter for supervision of other normal pregnancy, unspecified trimester (principal)
CPT/HCPCS: 36415; 85025; 86592; 86703; 86762; 86850; 86900; 86901

== ENCOUNTER → 2019-08-04 10:54 | Outpatient (CLI) | payer OTHER, SELFPAY ==
[2019-08-04 10:50] VITALS: BMI 23.6
[2019-08-04 11:38] LABS: Absolute Lymphocyte Count 1.53 X10^3/uL (0.83-4.51); Absolute Neutrophil Count 10.4 X10^3/uL (2.0-7.7); Basophil# 0.05 X10^3/uL; Basophil% 0.4 % (0-1); Eosinophil# 0.25 X10^3/uL; Eosinophils% 1.9 % (0-5); Hematocrit 36.5 % (37-47); Hemoglobin 12.7 g/dL (12.0-15.0); Lymphocyte # 1.53 X10^3/ul (4.0); Lymphocyte % 11.6 % (19-41); Mean Corp Hgb Conc 34.8 g/dL (32-36); Mean Corpuscular Hgb 31.8 pg (27.0-32.0); Mean Corpuscular Volume 91.5 fL (81-99); Mean Platelet Vol. 9.5 fl (6.2-12.0); Monocyte# 0.78 X10^3/uL; Monocyte% 5.9 % (0-10); NRBC Flagged by Analyzer 0 % (0-5); Neutrophil # 10.39 X10^3/uL (2.7-7.7); Neutrophil % 79.1 % (47-70); Platelet Count 271 K/mm3 (150-450); RBC Distribution Width CV 12.8 % (11.6-14.6); RBC Distribution Width SD 42.5 fl (35.1-43.9); Red Blood Count 3.99 M/mm3 (4.2-5.4); White Blood Count 13.2 K/mm3 (4.4-11.0)
[2019-08-04 12:33] LABS: Hepatitis B Surface Antigen Non-Reactive (Nonreactive)
[2019-08-04 13:35] LABS: Glucose Challenge Gest 1H 50g 176 mg/dL (70-140)
== END ==
PROVIDERS: Nurse Practitioner Women's Health; Referring Provider Obstetrics & Gynecology; Visit Provider Obstetrics & Gynecology
DX: O28.5 Abnormal chromosomal and genetic finding on antenatal screening of mother (principal); Z3A.00 Weeks of gestation of pregnancy not specified
CPT/HCPCS: 36415; 82950; 85025; 87340

== ENCOUNTER → 2019-08-11 07:04 | Outpatient (CLI) | payer OTHER, SELFPAY ==
[2019-08-04 10:50] VITALS: BMI 23.6
[2019-08-11 08:14] LABS: Glucose GTT-Gestation. Fasting 89 mg/dL (<105)
[2019-08-11 09:59] LABS: Glucose GTT-Gestational 2 Hr 168 mg/dL (<165)
[2019-08-11 10:01] LABS: Glucose GTT-Gestational 1 Hr 209 mg/dL (<190)
[2019-08-11 12:45] LABS: Glucose GTT-Gestational 3 Hr 121 L (<145)
== END ==
PROVIDERS: Referring Provider Obstetrics & Gynecology; Visit Provider Obstetrics & Gynecology
DX: O99.810 Abnormal glucose complicating pregnancy (principal); Z3A.00 Weeks of gestation of pregnancy not specified
CPT/HCPCS: 36415; 82951; 82952

== ENCOUNTER 2019-09-12 16:00 | Outpatient (RCR) | payer BC, SELFPAY ==
[2019-08-04 10:50] VITALS: BMI 23.6
== END 2019-09-16 23:59 ==
LOC: DC 16:00
PROVIDERS: Visit Provider Nurse Practitioner Women's Health
DX: Z71.3 Dietary counseling and surveillance (principal); O24.419 Gestational diabetes mellitus in pregnancy, unspecified control
CPT/HCPCS: 97802; G0108

== ENCOUNTER 2019-09-19 16:59 | Outpatient (RCR) | payer BC, SELFPAY ==
[2019-09-15 08:37] VITALS: BMI 23.6
== END 2019-10-15 23:59 ==
LOC: DC 16:59
PROVIDERS: Visit Provider Nurse Practitioner Women's Health
DX: Z71.3 Dietary counseling and surveillance (principal); O24.419 Gestational diabetes mellitus in pregnancy, unspecified control

== ENCOUNTER → 2019-10-14 12:59 | Outpatient (CLI) | payer BC, SELFPAY ==
[2019-10-14 09:32] VITALS: BMI 23.6
== END ==
PROVIDERS: Referring Provider Obstetrics & Gynecology; Visit Provider Obstetrics & Gynecology
DX: Z34.80 Encounter for supervision of other normal pregnancy, unspecified trimester (principal)
CPT/HCPCS: 87081

== ENCOUNTER 2019-10-25 02:55 | Inpatient (IN) | payer BC, SELFPAY ==
[2019-10-20 10:11] VITALS: BMI 23.6
[2019-10-25] VITALS (22 sets, daily range): BP systolic 105–123; BP diastolic 65–79; PULSE 76–108; RESP 16–18; TEMP 36.1–37; O2SAT 91–99; BMI 25.4
[2019-10-25 03:22] LABS: Absolute Neutrophil Count 8.1 X10^3/uL (2.0-7.7); Basophil# 0.04 X10^3/uL; Basophil% 0.4 % (0-1); Eosinophil# 0.14 X10^3/uL; Eosinophils% 1.3 % (0-5); Hematocrit 36.1 % (37-47); Hemoglobin 12.1 g/dL (12.0-15.0); Lymphocyte % 18.1 % (19-41); Mean Corp Hgb Conc 33.5 g/dL (32-36); Mean Corpuscular Hgb 28.1 pg (27.0-32.0); Mean Corpuscular Volume 83.8 fL (81-99); Mean Platelet Vol. 9.3 fl (6.2-12.0); Monocyte% 5.4 % (0-10); NRBC Flagged by Analyzer 0 % (0-5); Neutrophil # 8.14 X10^3/uL (2.7-7.7); Neutrophil % 73.4 % (47-70); Platelet Count 268 K/mm3 (150-450); RBC Distribution Width CV 13.1 % (11.6-14.6); RBC Distribution Width SD 39.7 fl (35.1-43.9); Red Blood Count 4.31 M/mm3 (4.2-5.4); White Blood Count 11.1 K/mm3 (4.4-11.0)
--- NOTE | 2019-10-25 04:21 | PCM.HP.OB ---
- Problem List (1) Active labor at term Status: Acute (2) Gestational diabetes Status: Acute Qualifiers: Comment: diet controlled, growth us q 4 weeks IOL 39-40 (3) Abnormal ultrasound Status: Acute Comment: CP cyst, intracardiac focus. NIPT screening low risk, declined amniocentesis. (4) Two vessel umbilical cord, antepartum Status: Acute Comment: Weekly NSTS starting at 32 weeks and growth US every 4 weeks. (5) Supervision of other normal Status: Acute Comment: PRR girl Dena Cano Spouse Catrachito (6) Status: Acute Qualifiers: Comment: Declines screenings for carrier and NTD. MFM Anatomy US showed chorioid plexus cyst, intracardiac echogenic focus. 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 Remainder anatomy normal. echo nl History Date of Admission: 06/16/18 History of this : This is a 28 year-old, , at 38 weeks gestational age presents IAL 6 cm and delivered within two hours of presentation. She has some bloody show and clear LOF while presenting. she has had diet controlled diabetes, a 2VC and has had reassuring testing. Medical History: Medical History (Last Reviewed 10/20/19 @ 10:04 by Belkys Gandhi) Proteinuria R80.9 Surgical History: Surgical History (Last Reviewed 10/20/19 @ 10:04 by Belkys Gandhi) No significant past surgical history Allergies No Known Allergies Allergy (Verified 10/25/19 03:13) Home Medications: Home Medications vitamin#30 30 mg iron-10 mg iron-folic acid 1 mg-omg3 capsule 1 cap PO DAILY cap 05/13/19 blood sugar diagnostic See Rx Instructions .ROUTE .MEDSUPPLY #100 ea 08/11/19 blood-glucose meter See Rx Instructions .ROUTE .MEDSUPPLY #1 ea 08/11/19 Amoxicillin [Amoxil] 500 mg PO TID 10/25/19 Smoking Status: Current every day smoker Alcohol: None Number of Fetus(es): 1 NST - FHR Rate Baby A Baseline: 130 Variability:: Moderate Accelerations:: 15 x 15 Decelerations:: None NST Reactive:: Yes FHR Category:: Category I Uterine Activity:: q2-3 History Past Pregnancies: Past Pregnancies 3 miscarriages 1 previous term uncomplicated Labs: Mom's Labs & Results 10/25/19 10/25/19 03:07 03:07 WBC 11.1 H RBC 4.31 Hgb 12.1 Hct 36.1 L MCV 83.8 MCH 28.1 MCHC 33.5 RDW Std Deviation 39.7 RDW Coeff of Yuliya 13.1 Plt Count 268 MPV 9.3 Immature Gran % (Auto) 1.400 H Neut % (Auto) 73.4 H Lymph % (Auto) 18.1 L Ross % (Auto) 5.4 Eos % (Auto) 1.3 Baso % (Auto) 0.4 Absolute Neuts (auto) 8.1 H Absolute Lymphs (auto) 2.00 Nucleated RBC % 0 Blood Type Pending Antibody Screen Pending Course Did the patient receive Yes care? Labs Blood Type: O RH: POSITIVE RPR/VDRL/Syphilis Nonreactive Rubella status Immune HbSAg Negative Date Done: 08/04/19 Chlamydia Negative Gonorrhea Negative HIV/AIDS Non-Reactive Group B Strep: Negative Social History Alleged father Catrachito Hx Smoking Yes Smoking Status Current every day smoker How long have you used n/a substances (years)? Expected Delivery Method: Spontaneous Vaginal Review of Systems Constitutional: Denies: Fever, Malaise Eyes: Denies: Blurred vision, Vision Change HEENT: Denies: Head Aches, Visual Changes Cardiovascular: Denies: Chest Pain, Palpitations Respiratory: Denies: Cough, Shortness of Breath, Wheezing Gastrointestinal: Denies: Abdominal Pain, Diarrhea, Nausea, Vomiting Genitourinary: Denies: Dysuria, Hematuria Musculoskeletal: Denies: Joint Pain, Muscle pain Skin: Denies: Lesions, Rash Neurological: Denies: Blurred vision, Focal weakness, Headaches Psychiatric: Denies: Anxiety, Depression Endocrine: Denies: Heat/ Cold Intolerance Hematologic/ Lymphatic: Denies: Easy Bruising, Easy Bleeding Physical Exam General: Alert, Cooperative, No apparent distress HEENT: Atraumatic, Normocephalic. Negative for: Thyromegaly, Lymphadenopathy Cardiovascular: Regular rate Lungs: Normal air movement Abdomen: Soft, Non Tender, Gravid Neurological: Deep Tendon Reflexes 2+/4 and Symmetrical, Neuro grossly intact. Negative for: Clonus [employer]: Normal external genitalia. Negative for: Vulvar lesions Estimated gestational size: Appropriate for gestational size Presentation: Cephalic Cervix Dilation (cm): 6 Assessment/Plan All Active Problems (Last Reviewed 10/20/19 @ 10:04 by Belkys Gandhi) Active labor at term (Acute) Otitis media, right (Acute) URI (upper respiratory infection) (Acute) Gestational diabetes (Acute) Abnormal ultrasound (Acute) Two vessel umbilical cord, antepartum (Acute) Supervision of other normal (Acute) (Acute) Absent septum pellucidum (Resolved) Contusion of right index finger without damage to nail, initial encounter (Resolved) Non-reactive NST (non-stress test) (Resolved) This is a 28 year-old, , at 38 weeks gestational age presents IAL. Patient presents IAL, plan expectant management for , . Pain management: Minimal intervention, pudendal block. GBS negative. Management of any complications: GDM A1 I have reviewed the [facility] and made any clinically relevant updates.
--- NOTE | 2019-10-25 04:24 | OP.PCM_ITS ---
Problem List (1) Active labor at term Status: Acute (2) Gestational diabetes Status: Acute Qualifiers: Comment: diet controlled, growth us q 4 weeks IOL 39-40 (3) Abnormal ultrasound Status: Acute Comment: CP cyst, intracardiac focus. NIPT screening low risk, declined amniocentesis. (4) Two vessel umbilical cord, antepartum Status: Acute Comment: Weekly NSTS starting at 32 weeks and growth US every 4 weeks. (5) Supervision of other normal Status: Acute Comment: PRR girl Dena Cano Spouse Catrachito (6) Status: Acute Qualifiers: Comment: Declines screenings for carrier and NTD. MFM Anatomy US showed chorioid plexus cyst, intracardiac echogenic focus. 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 Remainder anatomy normal. echo nl Vaginal Delivery Maternal Presentation: Active Labor ial Medical Reason for Induction: - - [id number] Amniotic Membrane Rupture Type: Spontaneous Amniotic Fluid Description: Clear Gestational age: 38 weeks Date of Procedure: 10/25/19 Pre-Operative Diagnosis: ial Post-Operative Diagnosis: same Surgery/ Procedure Performed: Spontaneous Vaginal Delivery Type of Anesthesia: Epidural Description of Procedure: Vagina was Betadine prepped and bilateral ischial spines were identified and 2 cm medial and posterior into the sacrospinous ligament 10 cc of lidocaine were injected performing a pudendal block bilaterally without complication. Patient began pushing and delivered the head in the JESSIE presentation. The head was del ivered atraumatically. The anterior and posterior shoulders delivered without complication followed by the rest of the infant and the infant was placed on the maternal abdomen. Delayed cord clamping was employed for approximately 60 seconds. Cord was clamped and cut and gentle traction was applied to the cord and the placenta delivered spontaneously immediately following it was noted to be intact with two-vessel cord. The perineum and vagina were inspected and noted to have no laceration. EBL was 100 cc. Patient and tolerated delivery well. Presentation: JESSIE Placental Delivery Description: Spontaneous Placenta Disposition: [facility] Cord Vessel Description: 2 Vessels Cord Entanglement: None Drain: Kwon to straight drain Estimated Blood Loss: 100 A gender: Female Episiotomy Description: None Laceration: None Complications: None Multi Select Codes - Urinary/Genital Urinary/Genital CPT Codes: 20307 Vaginal Delivery [facility]
[2019-10-25 05:25] LABS: Bedside Glucose 94 mg/dL (70-110)
[2019-10-25] MEDS: Acetaminophen 500 MG Tablet 1000 MG PO ×2 (13:13→23:57)
[2019-10-26 03:52] VITALS: BP 89/47; PULSE 75; RESP 16; TEMP 36.2; O2SAT 96
--- NOTE | 2019-10-26 08:26 | PCM.PN.OB ---
Patient Problems: Active and Suspected Problems (Last Reviewed 10/20/19 @ 10:04 by Belkys Gandhi) Active labor at term (Acute) Subjective: Doing well, no complaints.Pain controlled. Denies CP, SOB, N,V. Ambulating well, tolerating po. Lochia moderate, going well. - Physical Exam Vitals/I&O's: Vital Signs Temp Pulse Resp BP Pulse Ox 97.2 F L 75 16 89/47 L 96 10/26/19 03:52 10/26/19 03:52 10/26/19 03:52 10/26/19 03:52 10/26/19 03:52 Oxygen Delivery Method Room Air Weight: 130 lb 6.4 oz Body Mass Index (BMI) 25.4 General: Alert, Oriented x3 Abdomen: Soft, Non Tender, - - FF below U Current Medications Acetaminophen (Tylenol) 1,000 mg PO Q8H PRN PRN PRN Reason: Pain Score 1-3/10 Last Admin: 10/25/19 23:57 Dose: 1,000 mg Documented by: Bisacodyl (Dulcolax) 10 mg RECTAL UD PRN PRN Reason: If no BM Dibucaine (Dibucaine) 1 applic TOPICAL TID PRN PRN; Protocol PRN Reason: Discomfort Glucagon () 1 mg IM .X1 PRN PRN Reason: Hypoglycemia Hydrocortisone (Hytone) 1 applic TOPICAL TID PRN PRN; Protocol PRN Reason: Discomfort Dextrose (Dextrose 10%-Water) 250 mls @ 999 mls/hr IV X1 PRN; Protocol PRN Reason: HYPOGLYCEMIA Methylergonovine Maleate (Methergine) 0.2 mg IM X1 PRN PRN Reason: Excess bleeding/uterine atony Naproxen (Naprosyn) 500 mg PO Q8H PRN PRN PRN Reason: Pain Score 1-3/10 Ondansetron HCl (Zofran) 4 mg IV Q4H PRN PRN PRN Reason: Nausea Oxycodone HCl (Oxyir) 5 - 10 mg PO Q4H PRN PRN PRN Reason: Pain Score 4-10/10 Senna/Docusate Sodium (Senokot-S, Lynn-Colace) 1 - 2 tablet PO DAILY PRN PRN PRN Reason: Constipation Simethicone (Mylicon) 80 mg PO PCHS PRN PRN Reason: Indigestion/Stomach pain Sodium Chloride () 5 - 15 ml IV UD PRN PRN Reason: SALINE FLUSH Medical Necessity - Tobacco Use Smoking Status: Current every day smoker Assessment/Plan All Active Problems (Last Reviewed 10/20/19 @ 10:04 by Belkys Gandhi) Active labor at term (Acute) Otitis media, right (Acute) URI (upper respiratory infection) (Acute) Gestational diabetes (Acute) Abnormal ultrasound (Acute) Two vessel umbilical cord, antepartum (Acute) Supervision of other normal (Acute) (Acute) Absent septum pellucidum (Resolved) Contusion of right index finger without damage to nail, initial encounter (Resolved) Non-reactive NST (non-stress test) (Resolved) s/p PPD # 1 1. routine post delivery care 2. breast feeding- support given 3. rh positive 4. rubella immune 5. home today
--- NOTE | 2019-10-26 08:27 | DCINST_ITS ---
Additional Instructions: If you experience any of the following, contact your healthcare provider. * Bleeding that soaks a pad every hour for 2 hours * Fever 100.4 or higher * Unrelieved incision or abdominal pain * Swelling, redness, discharge or bleeding from your incision or episiotomy site * Your incision begins to separate * Problems urinating (including inability to urinate or burning while urinating). * Visual changes * Severe headache * Flu-like symptoms * Pain or redness in one of both of your breasts * Pain, warmth, tenderness or swelling in your legs, especially the calf area * Frequent nausea and vomiting * Symptoms of depression or anxiety If you experience any of the following, call 911 or go to the nearest Emergency Room. * Chest pain * Problems breathing * Seizure activity * Partial or complete paralysis of a body part, slurred speech, weakness or drooping of the face, or a sudden inability to walk or hold your balance Allergies/Adverse Reactions: Allergies No Known Allergies Allergy (Verified 10/25/19 03:13) Medications to take at Discharge vitamin#30 30 mg iron-10 mg iron-folic acid 1 mg-omg3 capsule 1 cap PO DAILY cap 05/13/19 blood sugar diagnostic See Rx Instructions .ROUTE .MEDSUPPLY #100 ea 08/11/19 blood-glucose meter See Rx Instructions .ROUTE .MEDSUPPLY #1 ea 08/11/19 Amoxicillin [Amoxil] 500 mg PO TID 10/25/19 Primary Care Physician: Care Physician,No Primary [Primary Care Provider] - Test Results: Test results from this visit will be discussed in further detail at your follow- up appointment, if applicable.
--- NOTE | 2019-10-26 08:27 | PCM.DCVAG ---
Additional Instructions: If you experience any of the following, contact your healthcare provider. Bleeding that soaks a pad every hour for 2 hours Fever 100.4 or higher Unrelieved incision or abdominal pain Swelling, redness, discharge or bleeding from your incision or episiotomy site Your incision begins to separate Problems urinating (including inability to urinate or burning while urinating). Visual changes Severe headache Flu-like symptoms Pain or redness in one of both of your breasts Pain, warmth, tenderness or swelling in your legs, especially the calf area Frequent nausea and vomiting Symptoms of depression or anxiety If you experience any of the following, call 911 or go to the nearest Emergency Room. Chest pain Problems breathing Seizure activity Partial or complete paralysis of a body part, slurred speech, weakness or drooping of the face, or a sudden inability to walk or hold your balance Allergies/Adverse Reactions: Allergies No Known Allergies Allergy (Verified 10/25/19 03:13) Medications to take at Discharge vitamin#30 30 mg iron-10 mg iron-folic acid 1 mg-omg3 capsule 1 cap PO DAILY cap 05/13/19 blood sugar diagnostic See Rx Instructions .ROUTE .MEDSUPPLY #100 ea 08/11/19 blood-glucose meter See Rx Instructions .ROUTE .MEDSUPPLY #1 ea 08/11/19 Amoxicillin [Amoxil] 500 mg PO TID 10/25/19 Primary Care Physician: Care Physician,No Primary [Primary Care Provider] - Test Results: Test results from this visit will be discussed in further detail at your follow-up appointment, if applicable.
[2019-10-26 08:30] VITALS: BP 116/75; PULSE 83; RESP 16; TEMP 36.1; O2SAT 96
== END 2019-10-26 11:15 | disposition home or self-care (01) | DRG 807 ==
LOC: WPOUT 03:02 → WP 03:02
PROVIDERS: Admitting Provider Obstetrics & Gynecology; Visit Provider Obstetrics & Gynecology
DX: O24.420 Gestational diabetes mellitus in childbirth, diet controlled (principal); Z37.0 Single live birth; O26.23 Pregnancy care for patient with recurrent pregnancy loss, third trimester; O99.334 Smoking (tobacco) complicating childbirth; F17.200 Nicotine dependence, unspecified, uncomplicated; Z3A.38 38 weeks gestation of pregnancy
CPT/HCPCS: 59025; 59050; 82962; 85025; 86850; 86900; 86901; 99218; G0378